=== PATIENT | female | born 1980 | race African-American/Black ===

== ENCOUNTER 2017-03-25 15:47 | Emergency (ER) | payer MEDICAID ==
[~2017-03-25] VITALS: Ht 175.3 cm; Wt 128.0 kg
[2017-03-25] MEDS ORDERED: SODIUM CHLORIDE 0.9% 1,000 ML IV ONE (18:02)
[2017-03-25 18:56] LABS: BASOPHILS % 0.8 % (0.0-2.0); HEMATOCRIT. 29.5 % (36.0-48.0); LYMPHOCYTES % 29.6 % (20.0-50.0); MEAN CORPUSCULAR HEMOGLOBIN 22.5 pg (28.0-32.0); MEAN CORPUSCULAR VOLUME 73.7 fL (81.0-99.0); MEAN PLATELET VOLUME 8.3 fl (7.4-10.4); MONOCYTES % 8.2 % (2.0-8.0); NEUTROPHILS % 58.4 % (40.0-76.0); PLATELET 341 x1000/uL (130-400); RED BLOOD CELL COUNT 4.01 mill/uL (4.2-5.4); RED CELL DISTRIBUTION WIDTH 21.5 % (11.6-14.6)
[2017-03-25 18:59] LABS: CHLORIDE 105 mEq/L (98-107)
[2017-03-25 19:03] LABS: CARBON DIOXIDE 24 mEq/L (21-32)
[2017-03-25 19:12] LABS: CLARITY URINE CLEAR (CLEAR); COLOR URINE YELLOW (YELLOW); GLUCOSE URINE NEGATIVE (NEGATIVE); KETONES URINE TRACE (NEGATIVE); LEUKOCYTE ESTERASE URINE TRACE (NEGATIVE); NITRITE URINE NEGATIVE (NEGATIVE); OCCULT BLOOD URINE 3+ (NEGATIVE); PH URINE 5.5 (4.5-8.0); PROTEIN URINE NEGATIVE (NEGATIVE); SPECIFIC GRAVITY URINE 1.024 (1.005-1.030); UROBILINOGEN URINE 0.2 E.U./dL (0.2-1.0)
[2017-03-25 19:20] LABS: B-HCG QUANTITATIVE 7831 mIU/mL (<3)
[2017-03-25 19:42] VITALS: BP 147/90
== END 2017-03-25 20:27 | disposition home or self-care (01) ==
LOC: ER 15:47
DX: O03.88 Urinary tract infection following complete or unspecified spontaneous abortion (principal); N39.0 Urinary tract infection, site not specified; F17.200 Nicotine dependence, unspecified, uncomplicated; Z3A.01 Less than 8 weeks gestation of pregnancy
CPT/HCPCS: 36415; 76801; 76817; 80048; 81001; 84702; 85025; 86850; 86900; 86901; 96360; 99285; 99406; J7030; Z7610

== ENCOUNTER 2021-01-01 02:38 | Emergency (ER) | payer MEDICAID ==
[~2021-01-01] VITALS: Ht 177.8 cm; Wt 137.0 kg
[2021-01-01] MEDS ORDERED: PROPOFOL 200MG/20ML VIAL IV ONE (03:15)
[2021-01-01] MEDS ORDERED: MORPHINE SULFATE 4 MG/ML CPJ (NOT FOR IM USE) IV ONE ×2 (03:15→10:45)
[2021-01-01] MEDS ORDERED: ONDANSETRON HCL 4MG/2ML INJ IV ONE ×3 (03:15→10:45)
[2021-01-01] MEDS ORDERED: BACITRACIN ZINC OINT UDPKT TOP ONE (04:15)
[2021-01-01] MEDS ORDERED: MORPHINE SULFATE 10 MG/ML CPJ IV ONE (06:00)
[2021-01-01 11:59] VITALS: BP 165/96
== END 2021-01-01 12:29 | disposition short-term general hospital (02) ==
LOC: ER 02:38
DX: S82.402A Unspecified fracture of shaft of left fibula, initial encounter for closed fracture (principal); I10 Essential (primary) hypertension; W01.0XXA Fall on same level from slipping, tripping and stumbling without subsequent striking against object, initial encounter; Y93.89 Activity, other specified; Y92.89 Other specified places as the place of occurrence of the external cause; Y99.8 Other external cause status
CPT/HCPCS: 27840; 73590; 73610; 73620; 96374; 96375; 96376; 99152; 99285; J2270; J2405; J2704; Z7610

== ENCOUNTER 2022-05-18 15:19 | Inpatient (IN) | payer MEDICAID ==
[~2022-05-18] VITALS: Ht 160 cm; Wt 127.0 kg
[2022-05-18] MEDS ORDERED: KETOROLAC 30MG/ML VIAL IV STA (15:57)
[2022-05-18] MEDS ORDERED: MORPHINE SULFATE 4 MG/ML CPJ (NOT FOR IM USE) IV STA (15:57)
[2022-05-18] MEDS ORDERED: ONDANSETRON HCL 4MG/2ML INJ IV STA (15:57)
[2022-05-18] MEDS ORDERED: SODIUM CHLORIDE 0.9% 1,000 ML IV ONE (16:00)
[2022-05-18 17:12] LABS: HEMATOCRIT. 27.5 % (36.0-48.0); HEMOGLOBIN. 8.2 g/dL (12.0-16.0); MEAN CORPUSCULAR HEMOGLOBIN 19.8 pg (28.0-32.0); MEAN CORPUSCULAR VOLUME 66.8 fL (81.0-99.0); PLATELET 339 x1000/uL (130-400); RED BLOOD CELL COUNT 4.12 mill/uL (4.2-5.4); RED CELL DISTRIBUTION WIDTH 24.7 % (11.6-14.6)
[2022-05-18 17:24] LABS: CHLORIDE 102 mEq/L (98-107)
[2022-05-18] MEDS ORDERED: AZITHROMYCIN 500 MG in DEXT 5% WATER 250 ML IV SCH (17:30)
[2022-05-18] MEDS ORDERED: CEFTRIAXONE 2 G PREMIX 50 ML IV ONE (17:30)
[2022-05-18] MEDS ORDERED: CEFTRIAXONE 2 G in DEXTROSE 5% WATER 50 ML IV NR (17:30)
[2022-05-18 18:18] LABS: CLARITY URINE TURBID (CLEAR); COLOR URINE DARK YELLOW (YELLOW); KETONES URINE TRACE (NEGATIVE); LEUKOCYTE ESTERASE URINE 1+ (NEGATIVE); NITRITE URINE POSITIVE (NEGATIVE); OCCULT BLOOD URINE 3+ (NEGATIVE); PH URINE 5.5 (4.5-8.0); PROTEIN URINE 1+ (NEGATIVE); SPECIFIC GRAVITY URINE 1.028 (1.005-1.030)
[2022-05-18] MEDS ORDERED: HEPARIN 5000 UNITS/ML VIAL IV ONE (19:30)
[2022-05-18] MEDS ORDERED: HEPARIN 25,000 UNITS PREMIX 250 ML IV ONE (19:30)
[2022-05-18 19:40] LABS: PLATELET ESTIMATE NORMAL
[2022-05-18] MEDS ORDERED: IOHEXOL-350 100 ML BOTTLE ONE (20:11)
[2022-05-18] MEDS ORDERED: HEPARIN BOLUS PRN aPTT <30 IV (20:30)
[2022-05-18] MEDS ORDERED: HEPARIN 25,000 UNITS PREMIX 250 ML IV SCH (20:30)
[2022-05-18] MEDS ORDERED: HEPARIN BOLUS PRN aPTT 30-44 IV (20:30)
[2022-05-18 20:55] LABS: PROTHROMBIN TIME 10.9 sec (9.6-11.0)
[2022-05-18] MEDS ORDERED: MORPHINE SULFATE 4 MG/ML CPJ (NOT FOR IM USE) IV ONE (21:45)
[2022-05-19] VITALS (7 sets, daily range): BP systolic 136–169; BP diastolic 82–112
[2022-05-19] MEDS ORDERED: MORPHINE SULFATE 2 MG/ML CPJ (NOT FOR IM USE) IV NR (12:30)
[2022-05-19] MEDS ORDERED: IPRATROPIUM/ALBUTEROL 0.5-3(2.5)MG/3ML NEB NEB PRN (15:30)
[2022-05-19] MEDS ORDERED: ONDANSETRON HCL 4MG/2ML INJ IV PRN (15:30)
[2022-05-19] MEDS ORDERED: CLONIDINE 0.1MG TABLET PO PRN (15:30)
[2022-05-19] MEDS ORDERED: NALOXONE HCL 0.4MG/ML VIAL IV PRN (15:45)
[2022-05-19] MEDS: TRAMADOL 50MG TABLET PO PRN (17:25)
[2022-05-19] MEDS: ACETAMINOPHEN 325MG TABLET PO PRN (17:30)
[2022-05-19] MEDS: ENOXAPARIN 120MG/0.8ML SYR SUBCUT SCH (17:36)
[2022-05-19] MEDS: AZITHROMYCIN 500 MG TABLET PO SCH (20:45)
[2022-05-19] MEDS ORDERED: CEFTRIAXONE 1 G PREMIX 50 ML IV SCH (20:45)
[2022-05-19] MEDS: CEFTRIAXONE 1,000 MG in DEXTROSE 5% WATER 50 ML IV SCH (22:08)
[2022-05-19] MEDS: MORPHINE SULFATE 2 MG/ML CPJ (NOT FOR IM USE) IV PRN (23:14)
[2022-05-20] VITALS (11 sets, daily range): BP systolic 137–152; BP diastolic 78–98
[2022-05-20 01:17] LABS: CREATINE KINASE 25 IU/L (26-192); CREATINE KINASE MB FRACTION < 1.0 ng/mL (0.5-3.6)
[2022-05-20] MEDS: ACETAMINOPHEN 325MG TABLET PO PRN ×2 (04:54→21:20)
[2022-05-20 06:44] LABS: BASOPHILS % 0.4 % (0.0-2.0); EOSINOPHILS % 0.1 % (0.0-5.0); LYMPHOCYTES % 15.6 % (20.0-50.0); MEAN CORPUSCULAR HEMOGLOBIN 20.1 pg (28.0-32.0); MEAN CORPUSCULAR VOLUME 67.7 fL (81.0-99.0); MEAN PLATELET VOLUME 9.4 fl (7.4-10.4); NEUTROPHILS % 70.9 % (40.0-76.0); PLATELET 323 x1000/uL (130-400); RED BLOOD CELL COUNT 3.34 mill/uL (4.2-5.4); RED CELL DISTRIBUTION WIDTH 23.4 % (11.6-14.6)
[2022-05-20] MEDS: ENOXAPARIN 120MG/0.8ML SYR SUBCUT SCH ×2 (06:44→17:37)
[2022-05-20 06:57] LABS: HEMATOCRIT. 22.6 % (36.0-48.0); HEMOGLOBIN. 6.7 g/dL (12.0-16.0)
[2022-05-20 07:58] LABS: CREATINE KINASE 21 IU/L (26-192); CREATINE KINASE MB FRACTION < 1.0 ng/mL (0.5-3.6)
[2022-05-20] MEDS: MORPHINE SULFATE 2 MG/ML CPJ (NOT FOR IM USE) IV PRN (08:40)
[2022-05-20 08:42] LABS: CHLORIDE 101 mEq/L (98-107)
[2022-05-20] MEDS: AZITHROMYCIN 500 MG TABLET PO SCH (08:54)
[2022-05-20] MEDS ORDERED: LEVOFLOXACIN 500MG TABLET PO SCH (11:00)
[2022-05-20] MEDS: TRAMADOL 50MG TABLET PO PRN (11:09)
[2022-05-20 13:24] LABS: TOTAL IRON BINDING CAPACITY 284 ug/dL (250-450)
[2022-05-20 14:00] LABS: VITAMIN B12 SERUM 315 pg/mL (211-911)
[2022-05-20 14:16] LABS: FERRITIN 56 ng/mL (10-291)
[2022-05-20] MEDS: IRON SUCROSE COMPLEX 100 MG/5 ML ML IV SCH (17:34)
[2022-05-20 17:52] LABS: HCG SCREEN NEGATIVE
[2022-05-20 18:44] LABS: HEPATITIS B SURFACE ANTIGEN NEGATIVE
[2022-05-20] MEDS: PANTOPRAZOLE SODIUM 40 MG/VIAL IV SCH (19:00)
[2022-05-20] MEDS: CEFTRIAXONE 1,000 MG in DEXTROSE 5% WATER 50 ML IV SCH (21:19)
[2022-05-21] VITALS (14 sets, daily range): BP systolic 133–162; BP diastolic 78–106
[2022-05-21 05:21] LABS: BASOPHILS % 0.2 % (0.0-2.0); EOSINOPHILS % 0.2 % (0.0-5.0); HEMATOCRIT. 24.9 % (36.0-48.0); HEMOGLOBIN. 7.4 g/dL (12.0-16.0); LYMPHOCYTES % 10.1 % (20.0-50.0); MEAN CORPUSCULAR HEMOGLOBIN 20.7 pg (28.0-32.0); MEAN CORPUSCULAR VOLUME 69.8 fL (81.0-99.0); MEAN PLATELET VOLUME 8.9 fl (7.4-10.4); MONOCYTES % 9.8 % (2.0-8.0); NEUTROPHILS % 79.7 % (40.0-76.0); PLATELET 350 x1000/uL (130-400); RED BLOOD CELL COUNT 3.57 mill/uL (4.2-5.4); RED CELL DISTRIBUTION WIDTH 24.9 % (11.6-14.6)
[2022-05-21 06:09] LABS: CHLORIDE 102 mEq/L (98-107)
[2022-05-21] MEDS: ENOXAPARIN 120MG/0.8ML SYR SUBCUT SCH ×2 (06:46→20:33)
[2022-05-21] MEDS: MORPHINE SULFATE 2 MG/ML CPJ (NOT FOR IM USE) IV PRN ×3 (11:27→23:45)
[2022-05-21] MEDS: PANTOPRAZOLE SODIUM 40 MG/VIAL IV SCH (11:28)
[2022-05-21] MEDS: AZITHROMYCIN 500 MG TABLET PO SCH (11:28)
[2022-05-21] MEDS: CYANOCOBALAMIN 1000MCG TABLET PO SCH (11:35)
[2022-05-21] MEDS: FOLIC ACID 1MG TABLET PO SCH (11:35)
[2022-05-21 12:45] LABS: HEMATOCRIT 25.4 % (36.0-48.0); HEMOGLOBIN 7.7 g/dL (12.0-16.0)
[2022-05-21] MEDS: ACETAMINOPHEN 325MG TABLET PO PRN (16:28)
[2022-05-21] MEDS: IRON SUCROSE COMPLEX 100 MG/5 ML ML IV SCH (16:38)
[2022-05-21] MEDS: CEFTRIAXONE 1,000 MG in DEXTROSE 5% WATER 50 ML IV SCH (21:28)
[2022-05-22] VITALS (14 sets, daily range): BP systolic 123–189; BP diastolic 55–100
[2022-05-22] MEDS: ENOXAPARIN 120MG/0.8ML SYR SUBCUT SCH ×2 (05:31→17:24)
[2022-05-22] MEDS: MORPHINE SULFATE 2 MG/ML CPJ (NOT FOR IM USE) IV PRN ×3 (06:10→23:04)
[2022-05-22 06:21] LABS: BASOPHILS % 0.3 % (0.0-2.0); EOSINOPHILS % 1.4 % (0.0-5.0); HEMATOCRIT. 24.8 % (36.0-48.0); HEMOGLOBIN. 7.6 g/dL (12.0-16.0); LYMPHOCYTES % 13.1 % (20.0-50.0); MEAN CORPUSCULAR HEMOGLOBIN 21.2 pg (28.0-32.0); MEAN CORPUSCULAR VOLUME 68.9 fL (81.0-99.0); MEAN PLATELET VOLUME 8.8 fl (7.4-10.4); MONOCYTES % 9.4 % (2.0-8.0); NEUTROPHILS % 75.8 % (40.0-76.0); PLATELET 387 x1000/uL (130-400); RED CELL DISTRIBUTION WIDTH 24.2 % (11.6-14.6)
[2022-05-22 06:52] LABS: CHLORIDE 100 mEq/L (98-107)
[2022-05-22] MEDS: TRAMADOL 50MG TABLET PO PRN (10:35)
[2022-05-22] MEDS: PANTOPRAZOLE SODIUM 40 MG/VIAL IV SCH (10:35)
[2022-05-22] MEDS: AZITHROMYCIN 500 MG TABLET PO SCH (10:35)
[2022-05-22] MEDS: FOLIC ACID 1MG TABLET PO SCH (10:35)
[2022-05-22] MEDS: CYANOCOBALAMIN 1000MCG TABLET PO SCH (10:48)
[2022-05-22] MEDS ORDERED: AMLODIPINE 5MG TABLET PO ONE (11:30)
[2022-05-22] MEDS ORDERED: POTASSIUM CHLORIDE 10MEQ TABLET SR PO NR (11:30)
[2022-05-22] MEDS: ACETAMINOPHEN 325MG TABLET PO PRN (16:44)
[2022-05-22] MEDS: IRON SUCROSE COMPLEX 100 MG/5 ML ML IV SCH (17:08)
[2022-05-22 20:03] LABS: PLATELET ESTIMATE NORMAL
[2022-05-22] MEDS ORDERED: AMLODIPINE 5MG TABLET PO SCH (21:00)
[2022-05-22] MEDS: CEFTRIAXONE 1,000 MG in DEXTROSE 5% WATER 50 ML IV SCH (23:05)
[2022-05-22] MEDS: AMLODIPINE 5MG TABLET PO SCH (23:06)
[2022-05-23] VITALS (14 sets, daily range): BP systolic 120–154; BP diastolic 45–92
[2022-05-23 05:47] LABS: BASOPHILS % 0.5 % (0.0-2.0); EOSINOPHILS % 3.1 % (0.0-5.0); HEMATOCRIT. 24.2 % (36.0-48.0); HEMOGLOBIN. 7.4 g/dL (12.0-16.0); LYMPHOCYTES % 15.3 % (20.0-50.0); MEAN CORPUSCULAR HEMOGLOBIN 21.2 pg (28.0-32.0); MEAN CORPUSCULAR VOLUME 69.2 fL (81.0-99.0); MEAN PLATELET VOLUME 8.9 fl (7.4-10.4); NEUTROPHILS % 71.1 % (40.0-76.0); PLATELET 447 x1000/uL (130-400); RED BLOOD CELL COUNT 3.49 mill/uL (4.2-5.4); RED CELL DISTRIBUTION WIDTH 24.7 % (11.6-14.6)
[2022-05-23] MEDS: ENOXAPARIN 120MG/0.8ML SYR SUBCUT SCH ×2 (07:32→18:09)
[2022-05-23 08:20] LABS: CHLORIDE 103 mEq/L (98-107)
[2022-05-23] MEDS: AZITHROMYCIN 500 MG TABLET PO SCH (09:30)
[2022-05-23] MEDS: PANTOPRAZOLE SODIUM 40 MG/VIAL IV SCH (09:39)
[2022-05-23] MEDS: AMLODIPINE 5MG TABLET PO SCH (09:39)
[2022-05-23] MEDS: CYANOCOBALAMIN 1000MCG TABLET PO SCH (09:40)
[2022-05-23] MEDS: FOLIC ACID 1MG TABLET PO SCH (09:40)
[2022-05-23] MEDS: MORPHINE SULFATE 2 MG/ML CPJ (NOT FOR IM USE) IV PRN ×3 (09:44→20:56)
== END 2022-05-23 21:10 | disposition short-term general hospital (02) | DRG 720 ==
LOC: ER 15:22 → MICUSO 22:45 → EDBEDREQSVC 22:51 → EDBEDREQTM 22:51 → EDBEDREQ 22:51 → 5EST 05-19 12:31
PROVIDERS: ADMIT Internal Medicine; ATTEND Internal Medicine
PROC: 30233N1 Transfusion of Nonautologous Red Blood Cells into Peripheral Vein, Percutaneous Approach (ICD-10-PCS; principal; 2022-05-20)
DX: A41.9 Sepsis, unspecified organism (principal); I26.99 Other pulmonary embolism without acute cor pulmonale; J96.01 Acute respiratory failure with hypoxia; E44.0 Moderate protein-calorie malnutrition; J18.9 Pneumonia, unspecified organism; K70.30 Alcoholic cirrhosis of liver without ascites; F10.10 Alcohol abuse, uncomplicated; D50.9 Iron deficiency anemia, unspecified; F17.210 Nicotine dependence, cigarettes, uncomplicated; N39.0 Urinary tract infection, site not specified; I10 Essential (primary) hypertension; Z20.822 Contact with and (suspected) exposure to COVID-19; K76.0 Fatty (change of) liver, not elsewhere classified; Z98.84 Bariatric surgery status; Z79.899 Other long term (current) drug therapy; Z68.42 Body mass index [BMI] 45.0-49.9, adult; Z87.81 Personal history of (healed) traumatic fracture
CPT/HCPCS: 36415; 71045; 71275; 76700; 80048; 80053; 81003; 82550; 82553; 82607; 82728; 82746; 83540; 83550; 83605; 83880; 84484; 84703; 85014; 85018; 85025; 85044; 85379; 86705; 86709; 86803; 86850; 86900; 86920; 87340; 87426; 93005; 93306; 93970; 99291; C1893; C9113; C9803; J0456; J0696; J1644; J1650; J1885; J2270; J2405; J7030; J7060; P9016; Q9967

== ENCOUNTER 2022-10-27 23:43 | Emergency (ER) | payer MEDICAID ==
[~2022-10-27] VITALS: Ht 165.1 cm; Wt 101.0 kg
[2022-10-28] MEDS ORDERED: IBUPROFEN 600MG TABLET PO ONE (00:30)
[2022-10-28 01:05] VITALS: BP 160/80
== END 2022-10-28 02:35 | disposition home or self-care (01) ==
LOC: ER 23:43
DX: S82.202A Unspecified fracture of shaft of left tibia, initial encounter for closed fracture (principal); S82.402A Unspecified fracture of shaft of left fibula, initial encounter for closed fracture; X58.XXXA Exposure to other specified factors, initial encounter; Y93.89 Activity, other specified; Y92.89 Other specified places as the place of occurrence of the external cause; Y99.8 Other external cause status; I10 Essential (primary) hypertension; F10.129 Alcohol abuse with intoxication, unspecified; Y90.0 Blood alcohol level of less than 20 mg/100 ml
CPT/HCPCS: 29515; 73610; 81025; 99283; Z7610

== ENCOUNTER 2024-05-16 18:45 | Emergency (ER) | payer MEDICAID ==
[~2024-05-16] VITALS: Ht 165.1 cm; Wt 66.0 kg
[2024-05-16 18:52] VITALS: O2SAT 98
[2024-05-16 20:06] LABS: HEMATOCRIT. 32.7 % (36.0-48.0); MEAN CORPUSCULAR HEMOGLOBIN 22.3 pg (28.0-32.0); MEAN CORPUSCULAR HGB CONC 30.5 g/dL (31.0-37.0); MEAN CORPUSCULAR VOLUME 73.1 fL (81.0-99.0); MEAN PLATELET VOLUME 8.3 fl (7.4-10.4); PLATELET 412 x1000/uL (130-400); RED BLOOD CELL COUNT 4.47 mill/uL (4.2-5.4); RED CELL DISTRIBUTION WIDTH 25.4 % (11.6-14.6); WHITE BLOOD COUNT 6.9 x1000/uL (4.5-11.0)
[2024-05-16 20:13] LABS: CHLORIDE 104 mEq/L (98-107); POTASSIUM 3.8 mEq/L (3.5-5.1); SODIUM 137 mEq/L (136-145)
[2024-05-16] MEDS: KETOROLAC 15MG/ML VIAL IV ONE (20:13)
[2024-05-16] MEDS: DIPHENHYDRAMINE 50MG/ML VIAL IV ONE (20:13)
[2024-05-16] MEDS: METOCLOPRAMIDE HCL 10MG/2ML VIAL IV ONE (20:13)
[2024-05-16] MEDS: ACETAMINOPHEN 325MG TABLET PO ONE (20:13)
[2024-05-16 20:14] LABS: CARBON DIOXIDE 23 mEq/L (21-32); DIFFERENTIAL COMMENT 1
[2024-05-16] MEDS: SODIUM CHLORIDE 0.9% 1,000 ML IV ONE (20:14)
[2024-05-16 20:15] LABS: CALCIUM 9.1 mg/dL (8.7-10.4)
[2024-05-16 20:19] LABS: CREATININE 0.7 mg/dL (0.6-1.0); GLUCOSE 97 mg/dL (70-105); UREA NITROGEN BLOOD 6 mg/dL (9-23)
[2024-05-16] MEDS: FLUORESCEIN SODIUM 1MG/STRIP BOTHEYE ONE (23:10)
[2024-05-16] MEDS: TETRACAINE 0.5% OPHTH DROPS 4ML BOTHEYE ONE (23:10)
[2024-05-16 23:19] LABS: ANISOCYTOSIS 2+; HYPOCHROMASIA 1+; MICROCYTOSIS 2+; OVALOCYTES 1+; PLATELET ESTIMATE INCREASED
[2024-05-16] MEDS ORDERED: CIPR2.5D20 EACHEYE (23:47)
[2024-05-17 00:07] VITALS: BP 159/99; PULSE 88; RESP 19; TEMP 36.66960; O2SAT 98
== END 2024-05-17 00:18 | disposition home or self-care (01) ==
LOC: ER 18:45
DX: H10.9 Unspecified conjunctivitis (principal); E78.5 Hyperlipidemia, unspecified; I10 Essential (primary) hypertension; F10.20 Alcohol dependence, uncomplicated; Y90.9 Presence of alcohol in blood, level not specified
CPT/HCPCS: 99285; 96374; 70450; 96375; 96361; 80048; 85025; 36415; J1200; J1885; J2765; J7030